=== PATIENT | female | born 1960 | race Caucasian/White ===

== ENCOUNTER 2016-03-25 22:44 | Inpatient (IN) | payer OTHER ==
[~2016-03-25] VITALS: Ht 175.3 cm; Wt 95.0 kg
[~2016-03-25 22:44] MED LIST: AUGMENTIN875 MG PO; DILAUDID1 GM MC; FLEXERIL5 MG PO; NAPROSYN SUS25 MG/ML PO; NEURONTIN50 MG/ML PO; OXYCODONE5 MG PO; OXYCONTIN10 MG PO; TORADOL10 MG PO; ZANAFLEX2 M1 PO
[2016-03-25 23:28] LABS: HEMATOCRIT 38.6 % (36.0-46.0); MCHC 34.5 G/DL (30.0-36.0); MCV 84.3 FL (83-99); MEAN PLAT.VOLUME 9.4 uM^3 (9.5-12.4); PLATELET COUNT 207 K/uL (156-360); RBC DIS.WIDTH-CV 12.8 % (11.8-14.6); RBC DIS.WIDTH-SD 38.3 % (39-53); RED BLOOD COUNT 4.58 M/uL (3.80-5.20); WHITE BLOOD COUNT 5.1 K/uL (4.1-10.2)
[2016-03-25 23:40] LABS: CHLORIDE 108 mEq/L (99-109); POTASSIUM 3.5 mEq/L (3.7-5.4); SODIUM 140 mEq/L (136-147)
[2016-03-25 23:42] LABS: GLUCOSE 105 mg/dL (70-99)
[2016-03-25 23:43] LABS: ANION GAP 12 MEQ/L (2-14)
[2016-03-25 23:46] LABS: GFR ESTIMATE (CALCULATED) 55 mL/min/; UREA NITROGEN (BUN) 8 mg/dL (9-23)
[2016-03-25 23:48] LABS: TROP-I INTERPRETATION NEGATIVE; TROPONIN-I 0.01 ng/mL (0.0-0.30)
[2016-03-26 00:44] LABS: INFLUENZA A VIRAL ANTIGEN NEGATIVE; INFLUENZA B VIRAL ANTIGEN NEGATIVE
[2016-03-26] MEDS ORDERED: ROXICODONE15 MG PO (01:38)
[2016-03-26] MEDS ORDERED: DILAUDID4 MG PO (01:39)
[2016-03-26] MEDS ORDERED: OXYCONTIN30 MG PO (01:39)
[2016-03-26] MEDS ORDERED: NAPROSYN500 MG PO (01:40)
[2016-03-26] MEDS ORDERED: NEURONTIN300 MG PO (01:40)
[2016-03-26] MEDS ORDERED: ZANAFLEX4 MG PO (01:40)
[2016-03-26] MEDS ORDERED: ADVIL200 MG PO (01:41)
[2016-03-26] MEDS ORDERED: AMOXICILLIN500 MG PO (01:41)
[2016-03-26 03:22] VITALS: BP 130/85
[2016-03-26 07:41] VITALS: BP 132/84
[2016-03-26 07:54] LABS: HEMATOCRIT 33.7 % (36.0-46.0); MCH 29.4 PG (29.0-34.0); MCHC 34.1 G/DL (30.0-36.0); MCV 86.2 FL (83-99); MEAN PLAT.VOLUME 10.1 uM^3 (9.5-12.4); PLATELET COUNT 176 K/uL (156-360); RBC DIS.WIDTH-CV 13.2 % (11.8-14.6); RBC DIS.WIDTH-SD 41.6 % (39-53); RED BLOOD COUNT 3.91 M/uL (3.80-5.20)
[2016-03-26 07:55] LABS: WHITE BLOOD COUNT 3.4 K/uL (4.1-10.2)
[2016-03-26 08:01] LABS: ANION GAP 7 MEQ/L (2-14); CHLORIDE 111 MEQ/L (99-109); POTASSIUM 3.5 MEQ/L (3.7-5.4); SAMPLE HEMOLYSIS CHECK 0; SAMPLE ICTERIC CHECK 0; SAMPLE LIPEMIA CHECK 0; SODIUM 142 MEQ/L (136-147)
[2016-03-26 08:07] LABS: GFR ESTIMATE (CALCULATED) > 59 mL/min/; GLUCOSE 99 mg/dL (70-99); UREA NITROGEN (BUN) 8 mg/dL (9-23)
[2016-03-26 08:17] LABS: ABS NEUTROPHIL COUNT 1.77; ANISOCYTOSIS 1+; EOSINOPHIL ABS CT 0.03; MACROCYTES OCC; MICROCYTOSIS 1+; PLAT.SUFFICIENCY ADEQUATE; SPHEROCYTES OCC; USER ID TLW
[2016-03-26 09:20] LABS: INTERNAL CONTROL VALID? YES
[2016-03-26 09:51] LABS: DELETE MACHINE DIFF? YES
[2016-03-26 11:12] VITALS: BP 103/71
[2016-03-26 15:53] VITALS: BP 121/79
[2016-03-26 19:49] VITALS: BP 129/78
[2016-03-26 23:35] VITALS: BP 119/71
[2016-03-27 06:47] LABS: EOSINOPHIL (%) 0 % (0-5); HEMATOCRIT 35.9 % (36.0-46.0); IMMATURE GRANULOCYTE (%) 0.3 % (0.0-0.7); LYMPHOCYTE COUNT 0.7 K/uL (1.0-2.8); MCH 29.1 PG (29.0-34.0); MCHC 33.7 G/DL (30.0-36.0); MCV 86.3 FL (83-99); MEAN PLAT.VOLUME 10.2 uM^3 (9.5-12.4); MONOCYTE (%) 4.8 % (3-12); MONOCYTE COUNT 0.2 K/uL (0-0.8); NEUTROPHIL (%) 73.6 % (45-76); NEUTROPHIL COUNT 2.3 K/uL (1.8-6.4); PLATELET COUNT 201 K/uL (156-360); RBC DIS.WIDTH-CV 13.2 % (11.8-14.6); RBC DIS.WIDTH-SD 41.8 % (39-53); RED BLOOD COUNT 4.16 M/uL (3.80-5.20); WHITE BLOOD COUNT 3.2 K/uL (4.1-10.2)
[2016-03-27 07:20] LABS: ALKALINE PHOSPHATASE 103 IU/L (3-129); ANION GAP 8 MEQ/L (2-14); CHLORIDE 109 MEQ/L (99-109); GFR ESTIMATE (CALCULATED) > 59 mL/min/; MAGNESIUM 1.8 mg/dl (1.3-2.7); SAMPLE HEMOLYSIS CHECK 0; SAMPLE ICTERIC CHECK 0; SAMPLE LIPEMIA CHECK 0; SODIUM 139 MEQ/L (136-147); TOTAL BILIRUBIN 0.3 MG/DL (0.0-1.0); UREA NITROGEN (BUN) 8 mg/dL (9-23)
[2016-03-27 07:21] LABS: GLUCOSE 153 mg/dL (70-99); POTASSIUM 5.1 MEQ/L (3.7-5.4)
[2016-03-27 08:34] VITALS: BP 113/64
[2016-03-27 11:53] VITALS: BP 154/76
[2016-03-27 17:01] VITALS: BP 136/67
[2016-03-27 19:21] VITALS: BP 128/72
[2016-03-27 23:22] VITALS: BP 115/65
[2016-03-28 07:14] VITALS: BP 134/78
[2016-03-28 07:23] LABS: ANION GAP 8 MEQ/L (2-14); CHLORIDE 108 MEQ/L (99-109); GFR ESTIMATE (CALCULATED) > 59 mL/min/; GLUCOSE 136 mg/dL (70-99); POTASSIUM 5.1 MEQ/L (3.7-5.4); SAMPLE HEMOLYSIS CHECK 0; SAMPLE ICTERIC CHECK 0; SAMPLE LIPEMIA CHECK 0; SODIUM 141 MEQ/L (136-147); UREA NITROGEN (BUN) 11 mg/dL (9-23)
[2016-03-28 07:24] LABS: EOSINOPHIL (%) 0 % (0-5); HEMATOCRIT 34.2 % (36.0-46.0); IMMATURE GRANULOCYTE (%) 0.3 % (0.0-0.7); LYMPHOCYTE COUNT 1.5 K/uL (1.0-2.8); MCHC 33.6 G/DL (30.0-36.0); MCV 86.4 FL (83-99); MONOCYTE (%) 6.6 % (3-12); MONOCYTE COUNT 0.7 K/uL (0-0.8); NEUTROPHIL (%) 79.3 % (45-76); NEUTROPHIL COUNT 8.5 K/uL (1.8-6.4); PLATELET COUNT 211 K/uL (156-360); RBC DIS.WIDTH-CV 13.2 % (11.8-14.6); RBC DIS.WIDTH-SD 42.1 % (39-53); RED BLOOD COUNT 3.96 M/uL (3.80-5.20)
[2016-03-28 07:31] LABS: WHITE BLOOD COUNT 10.7 K/uL (4.1-10.2)
[2016-03-28 15:35] VITALS: BP 132/76
[2016-03-29] VITALS: BP 123/70
[2016-03-29 08:03] VITALS: BP 125/85
[2016-03-29 16:00] VITALS: BP 133/95
[2016-03-29] MEDS ORDERED: LEVAQUIN500 MG PO (17:48)
[2016-03-29] MEDS ORDERED: SPIRIVA RESPIMAT4 GM IH (17:48)
[2016-03-29] MEDS ORDERED: PREDNISONE10 MG PO (17:48)
[2016-03-29] MEDS ORDERED: ADVAIR HFA120 INHALA IH (17:48)
[2016-03-29 23:55] VITALS: BP 143/71
[2016-03-30 03:41] VITALS: BP 159/69
[2016-03-30 07:44] VITALS: BP 157/90
[2016-03-30 12:00] VITALS: BP 138/82
[2016-03-30] MEDS ORDERED: SPIRIVA RESPIMAT4 GM IH (12:24)
[2016-03-30] MEDS ORDERED: ADVAIR HFA120 INHALA IH (12:26)
[2016-03-30] MEDS ORDERED: PREDNISONE10 MG PO (12:27)
== END 2016-03-30 13:14 | disposition home or self-care (01) | DRG 190 ==
LOC: EME 22:44 → 2EAST 03-26 02:32 → EDOF 03-26 02:32 → 2EASTP 03-26 02:32 → 2EAST 03-29 12:08
PROVIDERS: Emergency Medicine; Internal Medicine
DX: J44.0 Chronic obstructive pulmonary disease with (acute) lower respiratory infection (principal); J18.9 Pneumonia, unspecified organism; J44.1 Chronic obstructive pulmonary disease with (acute) exacerbation; E87.6 Hypokalemia; R09.02 Hypoxemia; G89.29 Other chronic pain; K59.00 Constipation, unspecified; F17.210 Nicotine dependence, cigarettes, uncomplicated; E66.9 Obesity, unspecified; Z68.30 Body mass index [BMI] 30.0-30.9, adult; Z88.5 Allergy status to narcotic agent; Z88.2 Allergy status to sulfonamides
CPT/HCPCS: 71020; 71250; 80048; 80053; 83605; 83735; 84484; 85025; 85027; 87040; 87449; 87502; 93005; 94640; 94640 76; 94667; 94668; 94799; 99202; 99281; 99285; J0456; J0696; J1650; J2405; J2920; J7030; J7050; J7512

== ENCOUNTER → 2017-01-21 | Outpatient (CLI) | payer OTHER ==
[~2017-01-21] VITALS: Ht 175.3 cm; Wt 91.6 kg
[~2017-01-21] MED LIST changes: +ADVAIR HFA120 INHALA IH; +ADVIL200 MG PO; +AMOXICILLIN500 MG PO; +DILAUDID4 MG PO; +DURAGESIC100 MCG TD; +LEVAQUIN500 MG PO; +MOVANTIK25 MG PO; +NAPROSYN500 MG PO; +NEURONTIN300 MG PO; +OXYCONTIN30 MG PO; +PREDNISONE10 MG PO; +PROTONIX40 MG PO; +ROXICODONE15 MG PO; +SPIRIVA RESPIMAT4 GM IH; +ZANAFLEX4 MG PO; +ZOFRAN8 MG PO
== END | disposition home or self-care (01) ==
LOC: AMB 08:28
PROC: 0DBH8ZX Excision of Cecum, Via Natural or Artificial Opening Endoscopic, Diagnostic (ICD-10-PCS; principal; 2017-01-21)
DX: R10.31 Right lower quadrant pain (principal); D12.0 Benign neoplasm of cecum; K64.8 Other hemorrhoids; Z86.010 Personal history of colon polyps; Z80.0 Family history of malignant neoplasm of digestive organs; F17.200 Nicotine dependence, unspecified, uncomplicated; G89.29 Other chronic pain; M51.36 Other intervertebral disc degeneration, lumbar region; Z98.1 Arthrodesis status; Z79.891 Long term (current) use of opiate analgesic; K59.00 Constipation, unspecified; T40.2X5A Adverse effect of other opioids, initial encounter; M79.7 Fibromyalgia; Z86.19 Personal history of other infectious and parasitic diseases; F41.9 Anxiety disorder, unspecified; G47.33 Obstructive sleep apnea (adult) (pediatric)
CPT/HCPCS: 88305; J2250